=== PATIENT | male | born 1945 | race Caucasian/White ===

== ENCOUNTER → 2017-07-20 | Outpatient (CLI) | payer MEDICARE, OTHER ==
[~2017-07-20] MED LIST: ASCO1TAB17 PO; ASP325T PO; ATOR40TA70 PO; BIMA2.5D4 OP; BIMA2.5D4 OU; CHOL400T43 PO; CHOL5000 PO; CLPD75T PO; DIPH50CA33 PO; DIPH50CA44 PO; FNST5T PO; FURO20TA4 PO; FURO40TA4 PO; GEMF600T3 PO; IBP600T1 PO; IBUP200T48 PO; LORA10TA7 PO; LOVA40TA2 PO; LOVA60TA2 PO; LSRT50T PO; MELA1TAB16 PO; METH500T7 PO; MULT-418 PO; NEBI5TAB8 PO; NFNEB10T PO; NIAC1000 PO; NIAC1CAP PO; NITR0.4T3 SL; ORPH100T PO; PGLT30T PO; POTA10TA36 PO; POTA8TAB6 PO; POTA99TA18 PO; POTA99TA7 PO; RANI75TA30 PO; RNT150T PO; SELE200T11 PO; VITA800C PO; [UNRECOGNIZED DRUG - CODE] PO
--- NOTE | 2017-07-20 12:12 | Diagnostic Imaging Report ---
PROCEDURE: US abdomen complete. TECHNIQUE: Multiple real-time grayscale images were obtained over the abdomen in various projections. INDICATION: Abdominal pain. FINDINGS: The pancreas is largely obscured by bowel gas. The liver is fairly homogeneous with no focal lesion seen. Hepatopetal flow in the portal vein is seen. Multiple gallstones are noted in the gallbladder with no wall thickening or pericholecystic fluid. Sonographic Mckeon sign is negative. The CBD is obscured. The spleen is 11.1 cm in length. The right kidney is 12.4 and the left kidney is 10.8 cm in length. There is a 1.5 cm simple cyst in the mid left kidney exophytic. No solid mass is identified. No hydronephrosis. The abdominal aorta and IVC are largely obscured. No fluid collection or ascites is identified. IMPRESSION: Cholelithiasis. Dictated by: Dictated on workstation # [id number]
== END ==
LOC: RAD 08:54
PROVIDERS: ATTEND Internal Medicine
DX: K80.20 Calculus of gallbladder without cholecystitis without obstruction (principal)
CPT/HCPCS: 76700

== ENCOUNTER → 2017-08-03 | Outpatient (CLI) | payer MEDICARE, OTHER ==
[~2017-08-03] MED LIST changes: +ALLO300T2 PO; +ASPI-808 PO; +BISO10TA PO; +CHLO10TA10 PO; +DIAZ5TAB3 PO; +FINA5TAB6 PO; +HYDR-700 PO; +IBUP-2055 PO; +LATA2.5D19 OU; +METF500T8 PO; +NITR0.4T39 SL; +POTA8CAP9 PO; +TIZA2TAB3 PO
== END ==
LOC: CARD 09:23
PROVIDERS: ATTEND Nurse Practitioner Family
DX: I25.10 Atherosclerotic heart disease of native coronary artery without angina pectoris (principal); I10 Essential (primary) hypertension; E78.4 Other hyperlipidemia; R06.09 Other forms of dyspnea
CPT/HCPCS: 93306

== ENCOUNTER → 2017-08-04 | Outpatient (CLI) | payer MEDICARE, OTHER ==
[~2017-08-04] VITALS: Ht 177.8 cm; Wt 101.6 kg
[~2017-08-04] MED LIST changes: +REGADENOSON 0.4 MG/5 ML SYR (LEXISCAN) IV ONE
[2017-08-04] MEDS: CATHETER FLUSH 10 ML SYR IV PRN ×2 (07:41→09:27)
[2017-08-04 09:20] VITALS: BP 145/80
--- NOTE | 2017-08-04 14:33 | STRESS TEST ---
DATE OF SERVICE: 08/04/2017 RESTING AND POST REGADENOSINE TECHNETIUM-[address] IMAGING ORDERING: GORDO Milligan OTHER PHYSICIAN: Dr. Calixto. CLINICAL DIAGNOSES: Coronary artery disease. Baseline images were carried out after injection of 10.38 mCi of technitium-99 Tetrofosmin. This was followed by 0.4 mg regadenoson and 28.5 mCi of technetium-99 Tetrofosmin for stress imaging. The electrocardiogram showed sinus rhythm during the study and it did not change with the regadenoson infusion. The patient tolerated the procedure well and did not report any significant symptoms. Review of images at rest and following stress did not indicate any significant perfusion defects consistent with significant myocardial ischemia or infarction. Gated images show normal global left ventricular systolic function and normal regional wall motion. Left ventricular ejection fraction is calculated to be 59%. Left ventricular end diastolic volume is 63 mL. TID is absent (1.03). CONCLUSIONS: 1. No evidence of any significant myocardial ischemia or infarction on this study. 2. Normal regional wall motion. 3. Normal global left ventricular systolic function with a calculated ejection fraction of 59%. 4. Normal left ventricular cavity size. Job ID: [id number] DocumentID: [id number] Dictated Date: 08/04/2017 11:35:14 Naturalization Examiner Date: 08/04/2017 12:18:18 Dictated By: HAYDEN CALIXTO MD, MA, FACP, FACC, MTDD
== END ==
LOC: CARD 07:10
PROVIDERS: ATTEND Nurse Practitioner Family
DX: I25.10 Atherosclerotic heart disease of native coronary artery without angina pectoris (principal); R06.09 Other forms of dyspnea; E78.4 Other hyperlipidemia; I10 Essential (primary) hypertension
CPT/HCPCS: 78452; 93017

== ENCOUNTER 2017-08-05 12:14 | Outpatient (CLI) | payer MEDICARE, OTHER ==
[~2017-08-05] VITALS: Ht 177.8 cm; Wt 101.6 kg
[~2017-08-05 12:14] MED LIST changes: -ALLO300T2 PO; -ASPI-808 PO; -BISO10TA PO; -CHLO10TA10 PO; -DIAZ5TAB3 PO; -FINA5TAB6 PO; -HYDR-700 PO; -IBUP-2055 PO; -LATA2.5D19 OU; -METF500T8 PO; -NITR0.4T39 SL; -POTA8CAP9 PO; -REGADENOSON 0.4 MG/5 ML SYR (LEXISCAN) IV ONE; -TIZA2TAB3 PO
[2017-08-05] MEDS ORDERED: FINA5TAB6 PO (14:11)
[2017-08-05] MEDS ORDERED: TIZA2TAB3 PO (14:11)
[2017-08-05] MEDS ORDERED: POTA8CAP9 PO ×2 (14:11)
[2017-08-05] MEDS ORDERED: DIAZ5TAB3 PO (14:11)
[2017-08-05] MEDS ORDERED: ALLO300T2 PO (14:11)
[2017-08-05] MEDS ORDERED: LATA2.5D19 OU (14:11)
[2017-08-05] MEDS ORDERED: FURO40TA4 PO (14:11)
[2017-08-05] MEDS ORDERED: CHLO10TA10 PO (14:11)
[2017-08-05] MEDS ORDERED: LOVA40TA2 PO (14:11)
[2017-08-05] MEDS ORDERED: METF500T8 PO (14:11)
[2017-08-05] MEDS ORDERED: HYDR-700 PO (14:11)
[2017-08-05] MEDS ORDERED: BISO10TA PO (14:11)
[2017-08-05] MEDS ORDERED: ASPI-808 PO (14:14)
[2017-08-05] MEDS ORDERED: IBUP-2055 PO (14:14)
[2017-08-05] MEDS ORDERED: NITR0.4T39 SL (14:14)
[2017-08-08] MEDS ORDERED: ASCO1TAB12 PO (13:05)
[2017-08-08] MEDS ORDERED: UBID1CAP53 PO (13:05)
[2017-08-08] MEDS ORDERED: NIAC10002 PO (13:05)
[2017-08-08] MEDS ORDERED: MELA10CA2 PO (13:05)
[2017-08-08] MEDS ORDERED: LORA-714 PO (13:05)
[2017-08-08] MEDS ORDERED: RANI150T11 PO (13:05)
[2017-08-08] MEDS ORDERED: VITA400C60 PO (13:05)
[2017-08-08] MEDS ORDERED: SELE200T11 PO (13:10)
[2017-08-08] MEDS ORDERED: MULT-1042 PO (13:10)
[2017-08-08] MEDS ORDERED: HYDR-3820 PO (13:24)
== END 2017-08-05 14:16 ==
LOC: PREOP 12:14
PROVIDERS: ATTEND Surgery
DX: Z01.818 Encounter for other preprocedural examination (principal); K80.20 Calculus of gallbladder without cholecystitis without obstruction

== ENCOUNTER → 2017-08-08 | Day surgery (SDC) | payer MEDICARE, OTHER ==
[~2017-08-08] VITALS: Ht 177.8 cm; Wt 101.6 kg
[~2017-08-08] MED LIST changes: +ALLO300T2 PO; +ASCO1TAB12 PO; +ASPI-808 PO; +BISO10TA PO; +BUPIVACAINE 0.25% 30 ML (SENSORCAINE) VIAL ONE; +CATHETER FLUSH 10 ML SYR IV PRN; +CHLO10TA10 PO; +DIAZ5TAB3 PO; +FINA5TAB6 PO; +GLYCOPYRROLATE 0.2 MG/ML (ROBINUL) 2 ML VIAL ONE; +HYDR-3820 PO; +HYDR-700 PO; +IBUP-2055 PO; +LATA2.5D19 OU; +LIDOCAINE 1% INJ 20 ML (XYLOCAINE) VIAL ONE; +LIDOCAINE PF 2% 5 ML (XYLOCAINE) VIAL ONE; +LIDOCAINE/EPI 1%-1:200,000 (XYLOCAINE) 10 ML VIAL ONE; +LORA-714 PO; +MELA10CA2 PO; +METF500T8 PO; +MULT-1042 PO; +NEOSTIGMINE (BLOXIVERZ ) 1 MG/1ML 10 ML VIAL ONE; +NIAC10002 PO; +NITR0.4T39 SL; +ONDANSETRON 4 MG/2 ML (SDV) Z0FRAN IVP PRN; +ONDANSETRON 4 MG/2 ML (SDV) Z0FRAN ONE; +POTA8CAP9 PO; +RANI150T11 PO; +ROCURONIUM 50 MG/5 ML (ZEMURON) VIAL IV ONE; +SEVOFLURANE (ULTANE) 15 ML INHAL SOLN ONE; +TIZA2TAB3 PO; +UBID1CAP53 PO; +VITA400C60 PO; +fentaNYL INJECTION 100 MCG/2 ML AMP ONE; +morphine INJ 10 MG/ML 1ML (SYR OR VIAL) ONE; +proPOfol 200 MG/20 ML (DIPRIVAN) VIAL IV ONE
[2017-08-08 10:35] VITALS: BP 128/81
[2017-08-08] MEDS: LACTATED RINGERS 1,000 ML IV PRN ×2 (11:40→13:09)
--- NOTE | 2017-08-08 11:49 | Progress Note-Pre Operative ---
Pre-Operative Progress Note H&P Reviewed The H&P was reviewed, patient examined and no changes noted. Time Seen by Provider: 11:31 Date H&P Reviewed: Aug 08, 2017 Time H&P Reviewed: 11:35 Pre-Operative Diagnosis: Marie/Marie AMINAH HARRISON DO Aug 08, 2017 11:49
[2017-08-08] MEDS: ceFAZolin 2 GM/NS 50 ML IV ONE ×2 (12:21→13:14)
--- NOTE | 2017-08-08 13:23 | Progress Note-Post Operative ---
Post-Operative Progess Note Surgeon (s)/Racquet Maker (s) Surgeon AMINAH HARRISON DO Racquet Maker: Elle Pre-Operative Diagnosis Marie/Marie Post-Operative Diagnosis same Procedure & Operative Findings Date of Procedure 08/08/17 Procedure Performed/Findings Lap Marie with IOC Anesthesia Type GET Estimated Blood Loss Estimated blood loss (mL): scant Specimens/Packing Specimens Removed GB and contents AMINAH HARRISON DO Aug 08, 2017 13:22
--- NOTE | 2017-08-08 13:26 | Discharge Inst-Surgical ---
Discharge Inst-Surgical Depart Medication/Instructions New, Converted or Re-Newed RX: RX Given to Pt/Family Patient Instructions Follow up Appt: Make appointment for 1 week. Instructions: No lifting greater than 10 pounds. No strenuous activity. May shower in 24 hours, no tub bath or soaking. Use incentive spirometer at home as directed. No Smoking Skin/Wound Care: May remove bandages in am. You need to leave the Dermabond on over incision; it will fall off on its own. Symptoms to Report: Appetite Changes, Extremity Discoloration, Numbness/Tingling, Swelling Increased , Bleeding Excessive, Eyesight Changes, Pain Increased, Urine Color Change, Constipation(Persistent), Fever over 101 degree F, Pain/Pressure in chest, Urinating Difficulty, Cough Up/Vomit Blood, Heart Beat Irreg/Pounding, Pain/ Pressure in jaw, Vaginal Bleeding Increase, Cramps in feet or legs, Lightheadedness, Pain/Pressure in shoulder, Diarrhea(Persistent), Memory Changes Suddenly, Questions/Concerns, Weight gain consecutive days, Dizziness/ Fainting, Nausea/Vomiting, Shortness of Breath, Weight gain over 2 pounds. If eyes or skin turn yellow notify physician. If questions or concerns contact your physician Or seek help at emergency department. Activity Activity as Tolerated: Yes Activity Instructions: Avoid Pulling & Pushing, Avoid Stress to Incision Driving Instructions: No Driving/Refer to Diet Discharge Diet: Avoid Fatty Foods, Low Fat/Low Cholesterol Diet After 24 Hours: Clear Liquid if Nauseous If Any Problems/Questions/Issu: Contact Your Physician, Go to Emergency Room Skin/Wound Care Infection Signs and Symptoms: Increased Redness, Foul Odor of Wound, Increased Drainage, Skin Itchy or Has a Rash, Increased Swelling, Temperature Above 101 F Wound Care Comment: Use heating pad to shoulder and neck tonight for pain. Bathing Instructions: Shower Stitches/Jesus/Dermabond Dis: Dermabond Ice Pack: Ice On and Off Site AMINAH HARRISON DO Aug 08, 2017 13:26
[2017-08-08] MEDS: morphine INJ 10 MG/ML 1ML (SYR OR VIAL) IVP PRN ×2 (13:43→13:57)
--- NOTE | 2017-08-08 14:04 | Diagnostic Imaging Report ---
Intraoperative cholangiogram. INDICATION: Laparoscopic cholecystectomy for abdominal pain. 16 seconds of fluoroscopy time is provided. FINDINGS: The images provided demonstrate the proximal and mid CBD with normal-caliber and no filling defects seen. The distal aspect of the CBD and contrast in the duodenum is not evaluated on this exam. IMPRESSION: The proximal and mid segments of the CBD are normal in caliber with no filling defects seen. The distal aspect of the CBD is not evaluated on the submitted images. Dictated by: Dictated on workstation # [id number]
[2017-08-08 14:30] VITALS: BP_SYST 137; BP_SYST 142; BP_DIAS 72; BP_DIAS 80
[2017-08-08 15:00] VITALS: BP 140/80
[2017-08-08 15:50] VITALS: BP 137/72
--- NOTE | 2017-08-15 23:15 | OPERATIVE REPORT ---
DATE OF SERVICE: 08/08/2017 PREOPERATIVE DIAGNOSES: Cholelithiasis, cholecystitis. POSTOPERATIVE DIAGNOSES: Cholelithiasis, cholecystitis. PROCEDURE: Laparoscopic cholecystectomy, intraoperative cholangiogram. SURGEON: Dr. Carlisle. HEAD ESTHETICIAN: Dr. Elle DO. ANESTHESIA: General endotracheal tube. SPECIMENS: Gallbladder and contents. BLOOD LOSS: Scant. FLUIDS: Per anesthesia. POSTOPERATIVE CONDITION: Stable. INDICATION FOR PROCEDURE: The patient is a 72-year-old male who has been having pain in right upper quadrant usually associated with fried fatty foods and an ultrasound showed stones. I would like to want and get his gallbladder out. FINDINGS: The patient had some adhesions of the gallbladder, which usually indicate previous gallbladder attacks, gallbladder removed without difficulty. No stones in the duct. PROCEDURE NOTE: After informed consent was obtained, the patient was brought to the operating room, placed on the operating table in supine position. He was sterilely prepped and draped in normal fashion. Local lidocaine was used to infiltrate the skin above the umbilicus. Made an incision with #11 blade, carried down through the skin into subcutaneous tissue, then deepened down subcutaneous tissue with Bovie electrocautery down to the fascia. Fascia incised with Bovie electrocautery, then bluntly entered the abdomen, swept a finger around, placed 0 Vicryl [id number] suture and then placed an 11 mm trocar port under direct visualization. Created a pneumoperitoneum and placed 3 more ports in a normal fashion using local lidocaine and 11 blade for stab incision and the VersaStep system, all done under direct visualization, one subxiphoid and 2 in the right upper quadrant. The patient was then placed slightly reverse Trendelenburg and rotated left, able to grasp the gallbladder at the fundus and taken it in a superior direction and then started grasping down the Genaro's pouch, noted some adhesions. This is usually indicative of previous gallbladder attacks and carefully started taking down these adhesions and then started dissecting out the cystic duct and cystic artery. I was able to get around the cystic duct and cystic artery and placed 1 clip distally and 2 proximally in the cystic artery and then one clip distally on the cystic duct. Cut the cystic duct jail through with Metzenbaum scissors. Placed a cholangiogram catheter and shot a cholangiogram. Good spillage of dye down the common bile duct in the small intestine as well as up in the common hepatic and right and left hepatics. I then removed the cholangiogram catheter, placed 2 clips proximally on the cystic duct and cut the cystic duct and the cystic artery with Metzenbaum scissors and then removed the gallbladder from bed of liver with L-hook cautery. Once it was completely removed, placed a bag in the abdomen, placed the gallbladder in the bag and then removed this through the supraumbilical incision. Placed the port back in the abdomen, copiously irrigated with normal saline, suctioned this out, looked around, no other obvious pathology, but did not move any of the omentum or intestine out of the away. At this point, placed the patient supine and allowed pneumoperitoneum to escape and then closed the supraumbilical incision, closing the fascia with 0 Vicryl suture previously placed. Copiously irrigated all incisions with normal saline and then closed the three small 5 mm incisions with single interrupted 4-0 undyed Monocryl subcuticular stitch and closed the supraumbilical incision with 3 interrupted 4-0 undyed Monocryl subcuticular stitches. Area was cleaned and dried, Dermabond placed as well as the bandage. The patient then transferred to recovery room in stable condition. Sponge, instrument and needle counts correct at the end of the case. Dr. Almeida assisted in this case. He helped make incisions, place trocar ports, close incisions, hold anatomy and as well as identify anatomy in this case. Job ID: [id number] DocumentID: [id number] Dictated Date: 08/15/2017 13:49:23 Candy Polisher Date: 08/15/2017 23:15:40 Dictated By: AMINAH CARLISLE DO
== END | disposition home or self-care (01) ==
LOC: SDC 10:29
PROVIDERS: ATTEND Surgery
DX: K80.10 Calculus of gallbladder with chronic cholecystitis without obstruction (principal); I48.91 Unspecified atrial fibrillation; I25.10 Atherosclerotic heart disease of native coronary artery without angina pectoris; E11.9 Type 2 diabetes mellitus without complications; E78.5 Hyperlipidemia, unspecified; I10 Essential (primary) hypertension; Z95.1 Presence of aortocoronary bypass graft; Z87.891 Personal history of nicotine dependence; Z95.5 Presence of coronary angioplasty implant and graft; K21.9 Gastro-esophageal reflux disease without esophagitis
CPT/HCPCS: 82962; 87081; 88304

== ENCOUNTER → 2018-10-25 | Outpatient (CLI) | payer MEDICARE, OTHER ==
[~2018-10-25] MED LIST changes: -BUPIVACAINE 0.25% 30 ML (SENSORCAINE) VIAL ONE; -CATHETER FLUSH 10 ML SYR IV PRN; -GLYCOPYRROLATE 0.2 MG/ML (ROBINUL) 2 ML VIAL ONE; -LIDOCAINE 1% INJ 20 ML (XYLOCAINE) VIAL ONE; -LIDOCAINE PF 2% 5 ML (XYLOCAINE) VIAL ONE; -LIDOCAINE/EPI 1%-1:200,000 (XYLOCAINE) 10 ML VIAL ONE; -NEOSTIGMINE (BLOXIVERZ ) 1 MG/1ML 10 ML VIAL ONE; -NITR0.4T3 SL; +NITR0.4T42 SL; -ONDANSETRON 4 MG/2 ML (SDV) Z0FRAN IVP PRN; -ONDANSETRON 4 MG/2 ML (SDV) Z0FRAN ONE; -ROCURONIUM 50 MG/5 ML (ZEMURON) VIAL IV ONE; -SEVOFLURANE (ULTANE) 15 ML INHAL SOLN ONE; -fentaNYL INJECTION 100 MCG/2 ML AMP ONE; -morphine INJ 10 MG/ML 1ML (SYR OR VIAL) ONE; -proPOfol 200 MG/20 ML (DIPRIVAN) VIAL IV ONE
== END ==
LOC: CARD 13:53
PROVIDERS: ATTEND Nurse Practitioner Family
DX: I48.0 Paroxysmal atrial fibrillation (principal); I25.10 Atherosclerotic heart disease of native coronary artery without angina pectoris; I10 Essential (primary) hypertension; E78.5 Hyperlipidemia, unspecified; I08.2 Rheumatic disorders of both aortic and tricuspid valves
CPT/HCPCS: 93306

== ENCOUNTER → 2018-11-07 | Outpatient (CLI) | payer MEDICARE ==
[~2018-11-07] MED LIST changes: +REGADENOSON 0.4 MG/5 ML SYR (LEXISCAN) IV ONE
[2018-11-07] MEDS: CATHETER FLUSH 10 ML SYR IV PRN ×2 (12:03→12:17)
[2018-11-07 13:17] VITALS: BP 146/75
[2018-11-07 13:19] VITALS: BP 141/69
== END ==
LOC: CARD 11:54
PROVIDERS: ATTEND Nurse Practitioner Family
DX: R55 Syncope and collapse (principal); R07.89 Other chest pain; I25.10 Atherosclerotic heart disease of native coronary artery without angina pectoris; I48.0 Paroxysmal atrial fibrillation; I10 Essential (primary) hypertension; E78.5 Hyperlipidemia, unspecified; I73.9 Peripheral vascular disease, unspecified
CPT/HCPCS: 78452; 93017; 93225; 93226

== ENCOUNTER 2018-11-21 10:14 | Day surgery (SDC) | payer MEDICARE ==
[2018-11-21] VITALS (10 sets, daily range): BP systolic 112–152; BP diastolic 63–80
[~2018-11-21] VITALS: Ht 177.8 cm; Wt 90.7 kg
[~2018-11-21 10:14] MED LIST changes: -REGADENOSON 0.4 MG/5 ML SYR (LEXISCAN) IV ONE
[2018-11-21] MEDS ORDERED: LIDOCAINE 1% INJ 20 ML 20 ML VIAL ONE (10:17)
[2018-11-21] MEDS ORDERED: HEParin (CATH LAB) 2,000 ML IV ONE (10:17)
[2018-11-21] MEDS ORDERED: NS IV 1000 ML 1,000 ML IV SCH ×2 (10:18→12:43)
[2018-11-21 10:57] LABS: MEAN PLATELET VOLUME 11.4 FL (7.4-10.4); RED CELL DISTRIBUTION WIDTH 14.5 % (10.0-14.5); WHITE BLOOD COUNT 8.3 10^3/uL (4.3-11.0)
[2018-11-21] MEDS ORDERED: ASPI-586 PO (11:06)
[2018-11-21] MEDS ORDERED: APIX5TAB PO (11:07)
[2018-11-21] MEDS ORDERED: BISO10TA PO (11:08)
[2018-11-21] MEDS ORDERED: LOVA40TA2 PO (11:10)
[2018-11-21] MEDS ORDERED: METF500T8 PO (11:11)
[2018-11-21] MEDS ORDERED: TIZA2CAP9 PO (11:11)
[2018-11-21 11:12] LABS: PROTHROMBIN TIME PATIENT 12.8 SEC (12.2-14.7)
[2018-11-21] MEDS ORDERED: LORA10TA7 PO (11:13)
[2018-11-21] MEDS ORDERED: NIAC500T24 PO (11:15)
[2018-11-21] MEDS ORDERED: NIAC10002 PO (11:16)
[2018-11-21 11:18] LABS: ALBUMIN 4.4 GM/DL (3.2-4.5); BILIRUBIN,TOTAL 0.9 MG/DL (0.1-1.0); CALCIUM 9.7 MG/DL (8.5-10.1); CREATININE SERUM 1.23 MG/DL (0.60-1.30); POTASSIUM 3.9 MMOL/L (3.6-5.0); TOTAL PROTEIN 7.3 GM/DL (6.4-8.2)
--- NOTE | 2018-11-21 11:18 | NUR ---
Patient brought all prescription bottle in. Bisoprolol bottle stated 10mg daily he states he only takes 5mg.
[2018-11-21] MEDS ORDERED: MIDAZOLAM 5 MG/5 ML (VERSED) VIAL ONE (11:26)
[2018-11-21] MEDS ORDERED: fentaNYL INJECTION 100 MCG/2 ML AMP ONE (11:27)
--- NOTE | 2018-11-21 12:43 | Cardiac Procedure Note-CS/ASA ---
Pre-Procedure Note Pre-Op Procedure Note H&P Reviewed The H&P was reviewed, patient examined and no changes noted. Date H&P Reviewed: Nov 21, 2018 Time H&P Reviewed: 11:55 Conscious Sedation Pre-Proced Time 11:55 ASA Score 3 For ASA 3 and 4: Consider anesthesia and medical clearance. Also, for patients with a history of failed moderate sedation consider anesthesia. Airway Lungs Heart ASA score ASA 1: a normal healthy patient ASA 2: a patient with a mild systemic disease (mid diabetes, controlled hypertension, obesity ASA 3: a patient with a severe systemic disease that limits activity (angina , COPD, prior Myocardial infarction) ASA 4: a patient with an incapacitating disease that is a constant threat to life (CHF, renal failure) ASA 5: a moribund patient not expected to survive 24 hrs. (ruptured aneurysm) ASA 6: a declared brain- patient whose organs are being harvested. For emergent operations, add the letter E after the classification Mallampati Classification Grade 2 Sedation Plan Analgesia, Amnesia, Plan communicated to team members, Discussed options with patient/fam, Discussed risks with patient/fam The patient is an appropriate candidate to undergo the planned procedure, sedation, and anesthesia. The patient immediately re-assessed prior to indication. HAYDEN LMION MD FACP FAC CCDS Nov 21, 2018 12:43
[2018-11-21] MEDS ORDERED: PATIENT MAY USE OWN MEDS, ALL PO SCH (12:45)
--- NOTE | 2018-11-21 12:46 | Discharge Inst-Post CATH ---
Discharge Inst-CATH/EP Post Cardiac Cath/EP D/C Inst Follow Up/Plan F/u with Dr Calixto in 2 weeks CARDIAC CATH DISCHARGE INSTRUCTIONS *Hold Metformin for 48 hours post heart cath. ACTIVITY * Go Home directly and rest. * Limit activity of the leg (or wrist if it was used) for 7 days including aerobics, swimming, jogging, bicycling, etc. * Restrict stair-climbing for 7 days if possible, if not, climb up with your non -cath leg, then bring together on the same step. * Avoid lifting, pushing, pulling or excessive movement of the affected extremity for 7 days. * Customary sexual activity may be resumed after 2 days-use caution not to use a position that strains or causes pain to the affected extremity. * No driving for 24 hours. * NO SMOKING. * Avoid straining for bowel movements for 7 days. * Gentle walking on level ground is allowed. * Returning to work will depend on the type of procedure and the results. Your doctor will discuss this with you. CALL YOUR DOCTOR FOR ANY OF THE FOLLOWING: *If bleeding from the puncture site occurs- Apply gentle pressure to site with clean cloth and call your doctor or EMS. * If a knot or lump forms under the skin, increases in size, or causes pain. * If bruising appears to be worsening or moving further down your leg instead of disappearing. * Temperature above 101 F. CARE OF YOUR GROIN INCISION; * Bruising or purple discoloration of the skin near the puncture site is common. * You may shower only, no bathtub bathing for 5 days. Be careful to avoid slipping as your leg may feel stiff. * If a closure device was used on your femoral artery, please see the attached guide regarding care of the device and your leg. * Leave the dressing on, until removed by office staff. CARE OF YOUR WRIST INCISION; * Bruising or purple discoloration of the skin near the puncture site is common. * You may shower. * DO NOT submerge wrist. * Leave dressing on, until removed by office staff.. HAYDEN CALIXTO MD [facility] CCDS Nov 21, 2018 12:46
--- NOTE | 2018-11-21 12:48 | Discharge Inst-Cardiology ---
Discharge Inst-Cardiac Discharge Medications Continued Medications: Allopurinol (Allopurinol) 300 Mg Tablet 300 MG PO HS, TAB Apixaban (Eliquis) 5 Mg Tablet 5 MG PO BID, TAB Ascorbate Calcium/Bioflavonoid (Samantha-C 500 mg Tablet) 1 Each Tablet 500 MG PO DAILY, #1 TAB Aspirin (Aspir 81) 81 Mg Tablet.dr 81 MG PO HS, TAB Bisoprolol Fumarate (Bisoprolol Fumarate) 10 Mg Tablet 5 MG PO HS, TAB Finasteride (Finasteride) 5 Mg Tablet 5 MG PO DAILY, TAB Furosemide (Furosemide) 40 Mg Tablet 40 MG PO 0800,1200, TAB Latanoprost (Xalatan) 2.5 Ml Drops 1 DROP OU HS, DROPS Loratadine (Loratadine) 10 Mg Tablet 10 MG PO DAILY, TAB Lovastatin (Lovastatin) 40 Mg Tablet 40 MG PO DAILY, TAB Melatonin (Melatonin) 10 Mg Capsule 10 MG PO HS, #1 CAP Multivit-Min/Iron Fum/Folic AC (Smtxz-Mxxkyzr-Rinzeyoj Tablet) 1 Each Tablet 1 EACH PO DAILY, #1 TAB Niacin (Niacin) 1,000 Mg Tablet.er 2000 MG PO HS, TAB Nitroglycerin (Nitroglycerin) 0.4 Mg Tab.subl 0.4 MG SL UD PRN for CHEST PAIN, TAB Potassium Chloride (Potassium Chloride) 8 Meq Capsule.er 16 MEQ PO DAILY, CAP take 2 (8MEQ) tabs Ranitidine HCl (Ranitidine HCl) 150 Mg Tablet 150 MG PO BID, #1 TAB Selenomethionine (Selenium) 200 Mcg Tablet 200 MCG PO DAILY, #1 TAB Tizanidine HCl (Tizanidine HCl) 2 Mg Capsule 2-4 MG PO HS PRN for MUSCLE SPASMS, CAP Ubidecarenone/Vit E Acetate (Co Q-10 100 mg Softgel) 1 Each Capsule 1 EACH PO DAILY, #1 CAP Vitamin E Acetate (Vitamin E) 400 Unit Capsule 800 INTLU PO DAILY, #1 CAP Discontinued Medications: Ibuprofen (Ibuprofen) 200 Mg Tablet 400 MG PO BID, TAB take 2 (200mg) tabs Metformin HCl (Metformin HCl ER) 500 Mg Tab.er.24h 1500 MG PO HS, TAB Patient Instructions Patient Instructions: Hold Metformin until the evening of 11/23/18 and then resume previous home dose HAYDEN LIMON MD FACP FAC CCDS Nov 21, 2018 12:48
--- NOTE | 2018-11-21 13:15 | CARDIAC CATHETERIZATION ---
DATE OF SERVICE: 11/21/2018 The patient is a 73-year-old man with a history of coronary artery disease and coronary artery bypass surgery. He is also known to have moderate aortic stenosis, moderate aortic regurgitation. A recent myocardial perfusion imaging study was indicative of some degree of inferolateral ischemia. Cardiac catheterization was carried out today after having obtained informed consent. PROCEDURE: He was brought to the cardiac catheterization laboratory in a fasting state. Right groin was prepared and draped in the usual sterile fashion. Lidocaine 1% for local anesthesia. Modified Seldinger technique was used to advance a 5-Micronesian sheath in the right femoral artery. A 5-Micronesian JL4 catheter was used for left coronary angiography. A 5-Micronesian JR4 catheter was used for right coronary angiography. A 5-Micronesian and JR4 catheter were used for angiography of the aortocoronary graft. A 5-Micronesian TYE catheter was used for angiography of the left internal mammary artery graft to the left anterior descending artery. A 5-Micronesian pigtail catheter was used for left heart catheterization and left ventricular angiography. At the end of the procedure, angiography of the right femoral artery was carried out through the sheath and Mynx was used to achieve hemostasis. He tolerated the procedure well. HEMODYNAMICS: Left ventricular end-diastolic pressure following coronary angiography was 16 mmHg. There was approximately 45 mm pressure gradient on pullback across the aortic valve. Ascending aortic pressure was 99/48 with a mean of 69 mmHg. CORONARY ANGIOGRAPHY: Diffuse moderate coronary calcification is seen. Left main coronary artery has 80% ostial stenosis. Left anterior descending artery has 60 to 70% mid vessel stenosis. Left circumflex artery has up to 80% stenoses in small sub branches of an obtuse marginal system. Right coronary artery has 70% ostial stenosis and 70% distal stenosis. There is a patent stent in the mid right coronary artery. AORTOCORONARY GRAFT ANGIOGRAPHY: The aortocoronary graft is a sequential graft to a posterolateral artery and to the distal right coronary artery. It is patent and does not exhibit significant obstructive disease. LEFT INTERNAL MAMMARY ARTERY GRAFT ANGIOGRAPHY: Left internal mammary artery graft is grafted to the mid left anterior descending artery. It is patent and free of significant disease. LEFT VENTRICULAR ANGIOGRAPHY: Left ventricular angiography was carried out in the right anterior oblique projection. Global left ventricular systolic function is normal. Left ventricular ejection fraction is approximately 65%. CONCLUSIONS: 1. Severe muscogee coronary artery disease including 80% ostial stenosis of left anterior descending, 60 to 70% mid vessel stenosis of left anterior descending, 80 to 90% stenosis in small caliber sub-branches of left circumflex obtuse marginal, 70% proximal and distal stenosis in the right coronary. 2. Patent left internal mammary artery graft to left anterior descending artery. 3. Patent sequential aortocoronary graft to a posterolateral and to the distal right coronary. 4. Normal global left ventricular systolic function with ejection fraction of 60-65%. 5. Mild to moderate elevation of left ventricular end-diastolic pressure. 6. A 45 mm pressure gradient on pullback across the aortic valve, indicative of moderate aortic stenosis. DISCUSSION AND RECOMMENDATIONS: Based on the results of the study, it appears reasonable to continue with a conservative approach and continuing focus on risk factor modification. Outpatient followup is advised. Job ID: [id number] DocumentID: [id number] Dictated Date: 11/21/2018 12:39:05 Printing Grey Cloth Tender Date: 11/21/2018 13:14:54 Dictated By: HAYDEN LIMON MD, MA, FACP, FACC, MTDD
--- NOTE | 2018-11-21 13:55 | NUR ---
PT.'S OXYGEN CONTINUES TO DROP BELOW 80% EVERY TIME HE DRIFTS OFF TO SLEEP. THIS NURSE PUT PT. ON 2 LITERS OF O2 AND BUMPED IT UP TO 5 LITERS NEEDED. THIS NURSE TOLD FAMILY THEY MIGHT ASK PCP ABOUT CONSIDERING A SLEEP STUDY FOR PT OR CONSIDER OXYGEN FOR SLEEPING.
== END 2018-11-21 16:15 | disposition home or self-care (01) ==
LOC: CATH 10:14
PROVIDERS: ATTEND Internal Medicine Cardiovascular Disease
DX: I25.10 Atherosclerotic heart disease of native coronary artery without angina pectoris (principal); I35.2 Nonrheumatic aortic (valve) stenosis with insufficiency; I48.91 Unspecified atrial fibrillation; I10 Essential (primary) hypertension; E11.9 Type 2 diabetes mellitus without complications; E78.5 Hyperlipidemia, unspecified; I73.9 Peripheral vascular disease, unspecified; Z79.01 Long term (current) use of anticoagulants; Z79.82 Long term (current) use of aspirin; Z79.84 Long term (current) use of oral hypoglycemic drugs; Z79.899 Other long term (current) drug therapy; Z87.891 Personal history of nicotine dependence; Z95.1 Presence of aortocoronary bypass graft
CPT/HCPCS: 36415; 80053; 80061; 85027; 85610; 85730; 87081; 93459

== ENCOUNTER 2020-01-09 05:36 | Outpatient (CLI) | payer MEDICARE ==
[~2020-01-09] VITALS: Ht 177.8 cm; Wt 95.9 kg
[~2020-01-09 05:36] MED LIST changes: +ACHYD1T PO; +APIX5TAB PO; +ASPI-586 PO; -DIAZ5TAB3 PO; +DIAZ5TAB49 PO; -HYDR-3820 PO; -IBUP-2055 PO; +IBUP-2473 PO; +METF500T19 PO; -METF500T8 PO; +NIAC500T24 PO; +POTA8CAP20 PO; -POTA8CAP9 PO; +TIZA2CAP9 PO; -TIZA2TAB3 PO; +TIZA2TAB4 PO
[2020-01-09] MEDS ORDERED: MELA1TAB20 PO (10:38)
[2020-01-09] MEDS ORDERED: ASCO-262 PO (10:38)
[2020-01-09] MEDS ORDERED: UBID100C17 PO (10:38)
[2020-01-09] MEDS ORDERED: FAMO40TA72 PO (10:38)
[2020-01-09] MEDS ORDERED: MULT-1104 PO (10:38)
[2020-01-09] MEDS ORDERED: METF-397 PO (10:38)
== END 2020-01-09 10:41 | disposition home or self-care (01) ==
LOC: PREOP 05:36
PROVIDERS: ATTEND Internal Medicine
DX: Z01.818 Encounter for other preprocedural examination (principal)

== ENCOUNTER 2020-01-11 07:32 | Day surgery (SDC) | payer MEDICARE ==
--- NOTE | 2020-01-10 05:50 | HISTORY AND PHYSICAL ---
DATE OF SERVICE: COLONOSCOPY HISTORY AND PHYSICAL HISTORY OF PRESENT ILLNESS: The patient is a 74-year-old white male seen in the office on 01/07/2020, reporting over the past month he has noted pinkish blood with the passage of stool. It does not appear to be mixed in with the stool. He denies any associated rectal pain and denies any known hemorrhoids. He has not experienced any bowel habit change. Hemoglobin was down one point to 13.2 with an MCV of 96 and his white count was 9000 with a platelet count of 186,000. The remainder of his blood work and for followup of diabetes was also good with a fasting sugar of 108 and an A1c of 5.9, estimated GFR was 65% and electrolytes were normal. He denies abdominal pain. He is not aware of a family history of colon cancer and his last colonoscopy he believes was about 9 years ago. He was not aware of any abnormalities. I will need to check this on electronic medical record as it was done at [facility]. PAST MEDICAL HISTORY: Significant for known coronary artery disease. He is 6 or 7 years out from 3-vessel bypass, has a history of peripheral vascular disease and has been on Eliquis for paroxysmal atrial fibrillation. REVIEW OF SYSTEMS: CONSTITUTIONAL: He has had no night sweats, chills or fever. His weight was stable at 211 pounds. He does, however, note some mild increase in fatigue. CARDIOVASCULAR: He has had no angina. Denies orthopnea, PND, pedal edema or increased shortness of breath. PULMONARY: He denies cough, sputum production, chest pain or wheezing. PHYSICAL EXAMINATION: GENERAL: Reveals a pale-appearing white male, otherwise, in no acute distress. He was alert and oriented with normal affect. VITAL SIGNS: Blood pressure 120/58, heart rate 80. HEENT: Other than some pallor was unremarkable. Sclerae nonicteric. CHEST: Clear to auscultation. CARDIOVASCULAR: Reveals a regular rate and rhythm with a 2-3/6 systolic ejection murmur and 1-2/6 diastolic decrescendo murmur heard best over the aortic outflow tract. No S3 or S4 were noted. Heart rate is regular. No evidence for pulsus parvus et tardus was noted. ABDOMEN: Soft, supple without mass, organomegaly or tenderness. No bruits are noted. No evidence for abdominal aortic aneurysm to palpation is noted. EXTREMITIES: Reveal no cyanosis, clubbing or edema. For further evaluation of low level of fatigue, anemia and rectal bleeding, the patient is being set up for diagnostic colonoscopy on 01/11/2020. Prep instructions were given and questions were answered. Job ID: [id number] DocumentID: [id number] Dictated Date: 01/07/2020 15:32:21 Cook Fishing Vessel Date: 01/07/2020 16:02:07 Dictated By: TAYA SONG MD
[2020-01-11] VITALS (13 sets, daily range): BP systolic 119–165; BP diastolic 62–78
[~2020-01-11] VITALS: Ht 177.8 cm; Wt 95.9 kg
[~2020-01-11 07:32] MED LIST changes: +ASCO-262 PO; +FAMO40TA72 PO; +MELA1TAB20 PO; +METF-397 PO; +MULT-1104 PO; +UBID100C17 PO
[2020-01-11] MEDS ORDERED: LACTATED RINGERS 1,000 ML IV ONE (07:34)
[2020-01-11] MEDS ORDERED: D5 LR IV SOLUTION 1,000 ML IV STA (07:40)
[2020-01-11] MEDS ORDERED: MIDAZOLAM 5 MG/5 ML (VERSED) VIAL IV PRN (07:45)
[2020-01-11] MEDS ORDERED: fentaNYL INJECTION 100 MCG/2 ML AMP IVP ONE (07:45)
[2020-01-11] MEDS ORDERED: LIDOCAINE JELLY 2% 6 ML SYRINGE MM PRN (07:45)
[2020-01-11] MEDS ORDERED: fentaNYL INJECTION 100 MCG/2 ML AMP ONE (08:03)
[2020-01-11] MEDS ORDERED: MIDAZOLAM 5 MG/5 ML (VERSED) VIAL ONE (08:03)
[2020-01-11] MEDS ORDERED: LIDOCAINE JELLY 2% 6 ML SYRINGE ONE (08:03)
--- NOTE | 2020-01-11 08:05 | Pre-Op Note & Conscious Sedat ---
Pre-Operative Progress Note H&P Reviewed The H&P was reviewed, patient examined and no changes noted. Date H&P Reviewed: Jan 11, 2020 Time H&P Reviewed: 07:40 Conscious Sedation Pre-Proced ASA Score 2 For ASA 3 and 4: Consider anesthesia and medical clearance. Also, for patients with a history of failed moderate sedation consider anesthesia. Airway Lungs Heart ASA score ASA 1: a normal healthy patient ASA 2: a patient with a mild systemic disease (mid diabetes, controlled hypertension, obesity ASA 3: a patient with a severe systemic disease that limits activity (angina, COPD, prior Myocardial infarction) ASA 4: a patient with an incapacitating disease that is a constant threat to life (CHF, renal failure) ASA 5: a moribund patient not expected to survive 24 hrs. (ruptured aneurysm) ASA 6: a declared brain- patient whose organs are being harvested. For emergent operations, add the letter E after the classification Mallampati Classification Grade 2 Sedation Plan Analgesia, Amnesia, Plan communicated to team members, Discussed options with patient/fam, Discussed risks with patient/fam The patient is an appropriate candidate to undergo the planned procedure, sedation, and anesthesia. The patient immediately re-assessed prior to indication. TAYA SONG MD Jan 11, 2020 08:05
[2020-01-11] MEDS ORDERED: SIMETHICONE 40 MG/0.6 ML (MYLICON DROPS) 30 ML BTL ONE (08:23)
--- NOTE | 2020-01-11 09:46 | OPERATIVE REPORT ---
DATE OF SERVICE: COLONOSCOPY SUMMARY INDICATION FOR THE PROCEDURE: Rectal bleeding with anemia. DESCRIPTION OF PROCEDURE: The patient was placed in the left lateral decubitus position. Prior to undergoing colonoscopy, digital rectal evaluation was performed. The prostate was mildly enlarged, anodular and nontender to digital inspection. No other abnormalities noted on additional inspection of anal canal or distal rectal vault. The colonoscope was then inserted into the rectum and under direct visualization advanced to cecum. The cecum was identified by identification of ileocecal valve and cecal strap. Photographic documentation was obtained. Careful inspection was made as colonoscope withdrawn. FINDINGS: There was no evidence for internal or external hemorrhoids and the rectum was unremarkable. There were a moderate number of small to medium size sigmoid diverticulum present without evidence for diverticulitis. Haustral hypertrophy is noted. Several diverticulum were noted in the descending colon as well without evidence for diverticulitis. No evidence for neoplasia was identified. The splenic flexure, a safer one diverticulum in the transverse colon. The transverse colon was unremarkable as well as the hepatic flexure, ascending colon and cecum. ASSESSMENT: No evidence for neoplasia was identified today. There was no evidence for internal or external hemorrhoids with moderate diverticular disease predominantly confined to the sigmoid colon lesser extent descending colon and one small diverticulum noted in the transverse colon. No other abnormalities noted on today's procedure. The patient will be advised to hold his Eliquis, but continue aspirin as he is high risk for severe complications from COVID-19 and the patient is taking Eliquis for paroxysmal atrial fibrillation. We will have the patient resume likely within 1 month to do everything to reduce risk for medical care during this time of pandemic. Short term risk of dual anticoagulant medication considering recent lower GI Bleed outweigh benefits. Job ID: [id number] DocumentID: [id number] Dictated Date: 01/11/2020 09:03:57 [employer] Analysis Engineering Technician Date: 01/11/2020 09:45:30 Dictated By: TAYA SONG MD [facility]
== END 2020-01-11 09:45 | disposition home or self-care (01) ==
LOC: ENDO 07:32
PROVIDERS: ATTEND Internal Medicine
DX: K57.30 Diverticulosis of large intestine without perforation or abscess without bleeding (principal); I48.0 Paroxysmal atrial fibrillation; D64.9 Anemia, unspecified; I25.10 Atherosclerotic heart disease of native coronary artery without angina pectoris; I73.9 Peripheral vascular disease, unspecified; Z95.1 Presence of aortocoronary bypass graft

== ENCOUNTER → 2020-09-29 | Outpatient (CLI) | payer MEDICARE ==
[~2020-09-29] MED LIST changes: +LORA-53 PO; -LORA-714 PO; +METF-865 PO; -METF500T19 PO; -TIZA2TAB4 PO; +TIZA2TAB7 PO
--- NOTE | 2020-09-29 11:41 | Diagnostic Imaging Report ---
PROCEDURE: CT abdomen and pelvis without contrast. TECHNIQUE: Multiple contiguous axial images were obtained through the abdomen and pelvis without the use of intravenous contrast. Auto Exposure Controls were utilized during the CT exam to meet ALARA standards for radiation dose reduction. INDICATION: Prostate cancer. FINDINGS: The previous CT abdomen/pelvis exam of 12/13/2013 failed to show any sign of an acute abnormality. The liver is homogeneous and does not seem to be enlarged. The spleen, the pancreas, the adrenals, the kidneys, the aorta and inferior vena cava show no sign of an acute abnormality. The small 1.5 cm hyperdense cyst along the lateral aspect of the left kidney seen previously is again evident and does not appear changed. Consequently, I do suspect this is a benign process. 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 I do suspect that there is a hemodynamically significant stenosis in this region. This finding is similar although somewhat worse than noted on the prior exam. The stomach is filled with particulate matter and fluid and consequently difficult to assess. There are numerous diverticula throughout the sigmoid and descending colon. There is no evidence for acute diverticulitis. The appendix is not well-visualized but there are no indirect signs of acute appendicitis. The urinary bladder and prostate gland are grossly unremarkable. The bone windows show no evidence for a lytic or blastic lesion to suggest metastatic disease. If a more sensitive evaluation of skeletal metastatic disease is desired, then nuclear medicine bone scan would be recommended. There is mild dependent atelectasis in the left lung base. The lungs are otherwise generally clear. Extensive coronary artery calcifications are again noted. IMPRESSION: 1. There is no evidence for an acute abnormality of the abdomen or pelvis. 2. There is diverticulosis of the sigmoid and descending colon but there is no sign of acute diverticulitis. 3. There is no bony lesion to suggest metastatic disease. Additional considerations as above. Dictated by: Dictated on workstation # [id number]
--- NOTE | 2020-09-29 21:28 | Diagnostic Imaging Report ---
EXAM: Nuclear medicine whole body bone scan INDICATION: Prostate cancer This study was performed following the administration of 26.1 mCi of 99 technetium MDP. Anterior and posterior whole-body images were obtained. Spot anterior and posterior images of the lumbar spine and pelvis were also performed. COMPARISON: There are no prior nuclear medicine studies available for comparison. FINDINGS: There is increased activity in the L4 vertebral body on the right and in the L5 vertebral body on the left. The CT abdomen/pelvis exam performed earlier today in conjunction with this study did note fairly severe degenerative disc and bony disease involving the lower lumbar spine. There is no sign of a fracture in this area or of a destructive lesion and consequently the abnormal uptake seen on this exam may well be due to degenerative disease alone. If further imaging is desired, then MRI would be recommended. There is also increased activity in the region of the costovertebral junction of the left 1st rib. This is probably degenerative in nature as well. There is generalized increased activity about both knee joints as well and this too is most likely secondary to degenerative disease. There is no abnormal uptake to suggest neoplastic disease or an acute abnormality. Both kidneys do show excretion of the radiotracer. IMPRESSION: 1. The areas of abnormal uptake involving the lower lumbar spine are more likely due to degenerative disease than to neoplasm. Recommendations as above. 2. There is no other evidence for neoplastic disease or for an acute abnormality. Dictated by: Dictated on workstation # [id number]
== END ==
LOC: CARD 10:45
PROVIDERS: ATTEND Urology
DX: C61 Malignant neoplasm of prostate (principal); K57.30 Diverticulosis of large intestine without perforation or abscess without bleeding; M51.36 Other intervertebral disc degeneration, lumbar region
CPT/HCPCS: 74176; 78306; A9503

== ENCOUNTER 2020-11-07 05:28 | Outpatient (RCR) | payer MEDICARE ==
[~2020-11-07] VITALS: Ht 180 cm; Wt 95.9 kg
[~2020-11-07 05:28] MED LIST changes: +TIZA-169 PO; -TIZA2TAB7 PO
== END 2020-11-07 10:12 | disposition home or self-care (01) ==
LOC: PREOP 05:28
PROVIDERS: ATTEND Urology
DX: Z01.812 Encounter for preprocedural laboratory examination (principal); C61 Malignant neoplasm of prostate; Z20.822 Contact with and (suspected) exposure to COVID-19
CPT/HCPCS: 87635

== ENCOUNTER 2020-11-11 07:57 | Day surgery (SDC) | payer MEDICARE ==
[~2020-11-11] VITALS: Ht 180 cm; Wt 95.9 kg
[2020-11-11] VITALS (10 sets, daily range): BP systolic 106–141; BP diastolic 57–83
--- NOTE | 2020-11-11 07:10 | Progress Note-Pre Operative ---
Pre-Operative Progress Note H&P Reviewed The H&P was reviewed, patient examined and no changes noted. Date Seen by Provider: Nov 11, 2020 Time Seen by Provider: 08:49 Date H&P Reviewed: Nov 11, 2020 Time H&P Reviewed: 08:49 Pre-Operative Diagnosis: CA PROSTATE MACKENZIE LAGUNAS MD Nov 11, 2020 07:10
[2020-11-11] MEDS ORDERED: LACTATED RINGERS 1,000 ML IV PRN (08:00)
[2020-11-11] MEDS ORDERED: cefTRIAXone FOR IV USE 1,000 MG in WATER (STERILE) FOR INJECTION 10 ML IV ONE (08:00)
[2020-11-11] MEDS ORDERED: SEVOFLURANE (ULTANE) 15 ML INHAL SOLN ONE (08:26)
[2020-11-11] MEDS ORDERED: proPOfol 200 MG/20 ML (DIPRIVAN) VIAL IV ONE (08:26)
[2020-11-11] MEDS ORDERED: fentaNYL INJECTION 100 MCG/2 ML AMP ONE (08:26)
[2020-11-11] MEDS ORDERED: ONDANSETRON 4 MG/2 ML (SDV) Z0FRAN ONE (08:26)
[2020-11-11] MEDS ORDERED: MIDAZOLAM 2 MG/2 ML (VERSED) VIAL ONE (08:26)
[2020-11-11] MEDS ORDERED: LIDOCAINE PF 2% 5 ML (XYLOCAINE) VIAL ONE (08:26)
--- NOTE | 2020-11-11 08:53 | Progress Note-Post Operative ---
Post-Operative Progess Note Surgeon (s)/Home Teaching Grades 9 Thru 12 Teacher (s) Surgeon MACKENZIE LAGUNAS MD Home Teaching Grades 9 Thru 12 Teacher: NONE Pre-Operative Diagnosis CA PROSTATE Post-Operative Diagnosis SAME Procedure & Operative Findings Date of Procedure 11/11/20 Procedure Performed/Findings PLACEMENT OF SPACE OAR Anesthesia Type GENERAL Estimated Blood Loss Estimated blood loss (mL): NONE Specimens/Packing Specimens Removed NONE Packing: NONE MACKENZIE LAGUNAS MD Nov 11, 2020 08:53
--- NOTE | 2020-11-11 08:54 | Discharge Inst-Urology ---
Discharge Inst-Urology Reconcile Patient Problems Problems Reviewed?: Yes Final Diagnosis CA PROSTATE Patient Instructions/Follow Up Plan/Assessment/Instructions Please make appointment to been seen in office in 2 weeks. In 48 hours, if no bleeding may resume Eliquis and ASA Increase oral fluids for 48 hours and then as needed. Diet and Activity as tolerated. If questions or concerns contact your physician Or seek help at emergency department. MACKENZIE LAGUNAS MD Nov 11, 2020 08:54
[2020-11-11] MEDS ORDERED: ONDANSETRON 4 MG/2 ML (SDV) Z0FRAN IVP PRN (09:15)
[2020-11-11] MEDS ORDERED: HYDROmorphone 2 MG/ML VIAL (DILAUDID) IV ONE (09:15)
--- NOTE | 2020-11-11 09:21 | Anesthesia-General Post-Op ---
General Patient Condition Mental Status/LOC: Same as Preop Cardiovascular: Satisfactory Nausea/Vomiting: Absent Respiratory: Satisfactory Pain: Controlled Complications: Absent Post Op Complications Complications None Follow Up Care/Instructions Patient Instructions None needed. Anesthesia/Patient Condition Patient Condition Patient is doing well, no complaints, stable vital signs, no apparent adverse anesthesia problems. No complications reported per nursing. D/C home per [facility] [place] Criteria: Yes LARRY JENKINS CRNA Nov 11, 2020 09:21
[2020-11-11] MEDS ORDERED: PHEN-640 PO (10:11)
== END 2020-11-11 10:55 | disposition home or self-care (01) ==
LOC: SDC 07:57
PROVIDERS: ATTEND Urology
DX: C61 Malignant neoplasm of prostate (principal); I10 Essential (primary) hypertension; I25.10 Atherosclerotic heart disease of native coronary artery without angina pectoris; I48.91 Unspecified atrial fibrillation; K21.9 Gastro-esophageal reflux disease without esophagitis; G47.33 Obstructive sleep apnea (adult) (pediatric); E11.51 Type 2 diabetes mellitus with diabetic peripheral angiopathy without gangrene; E66.8 Other obesity; Z68.29 Body mass index [BMI] 29.0-29.9, adult; Z79.899 Other long term (current) drug therapy; Z79.84 Long term (current) use of oral hypoglycemic drugs; Z79.01 Long term (current) use of anticoagulants; Z88.8 Allergy status to other drugs, medicaments and biological substances; Z91.048 Other nonmedicinal substance allergy status; Z95.5 Presence of coronary angioplasty implant and graft
CPT/HCPCS: 87081

== ENCOUNTER → 2020-11-18 | Outpatient (CLI) | payer MEDICARE ==
[~2020-11-18] MED LIST changes: +PHEN-640 PO
== END ==
LOC: CARD 12:00
PROVIDERS: ATTEND Nurse Practitioner Family
DX: I08.3 Combined rheumatic disorders of mitral, aortic and tricuspid valves (principal); I48.91 Unspecified atrial fibrillation; I65.29 Occlusion and stenosis of unspecified carotid artery; Z79.01 Long term (current) use of anticoagulants
CPT/HCPCS: 93306

== ENCOUNTER → 2021-01-26 | Outpatient (RCR) | payer MEDICARE | END | disposition home or self-care (01) | LOC: ONC 10-28 14:24 | PROVIDERS: ATTEND Radiology Radiation Oncology | DX: C61 Malignant neoplasm of prostate (principal); I25.10 Atherosclerotic heart disease of native coronary artery without angina pectoris; I10 Essential (primary) hypertension; E11.9 Type 2 diabetes mellitus without complications; Z95.5 Presence of coronary angioplasty implant and graft | CPT/HCPCS: 77300; 77301; 77334; 77336; 77338; 77385; 99204 ==

== ENCOUNTER 2021-04-02 13:27 | Outpatient (RCR) | payer MEDICARE | END 2021-04-27 | disposition home or self-care (01) | LOC: ONC 13:27 | PROVIDERS: ATTEND Radiology Radiation Oncology | DX: C61 Malignant neoplasm of prostate (principal); I11.9 Hypertensive heart disease without heart failure; I25.10 Atherosclerotic heart disease of native coronary artery without angina pectoris; E11.9 Type 2 diabetes mellitus without complications; E78.00 Pure hypercholesterolemia, unspecified; Z95.5 Presence of coronary angioplasty implant and graft | CPT/HCPCS: 77385 ×2; G0463; 77336 ==

== ENCOUNTER → 2021-09-22 | Outpatient (CLI) | payer MEDICARE ==
[~2021-09-22] MED LIST changes: -BISO10TA PO; +BISO10TA6 PO
--- NOTE | 2021-09-22 14:57 | Diagnostic Imaging Report ---
INDICATION: Prostate CA. Comparison with 09/29/2020. FINDINGS: 25 mCi of technetium-99m MDP was given. Three-hour delayed whole body imaging. Good uptake noted throughout the skeletal system. There is again noted mild increased uptake within the L4 and L5 vertebral bodies. There is increased uptake along the first MP joints bilaterally as well as within the left mid foot. No other areas of abnormal uptake have developed. IMPRESSION: 1. Abnormal activity in the lower lumbar spine appears stable. 2. Increased uptake within the feet also appears unchanged consistent with degenerative process. Dictated by: Dictated on workstation # [id number]
== END ==
LOC: CARD 11:01
PROVIDERS: ATTEND Urology
DX: C61 Malignant neoplasm of prostate (principal)
CPT/HCPCS: 78306; A9503

== ENCOUNTER → 2022-02-03 | Outpatient (CLI) | payer MEDICARE | LOC: CARD 15:54 | PROVIDERS: ATTEND Internal Medicine | DX: I48.91 Unspecified atrial fibrillation (principal) | CPT/HCPCS: 93005 ==

== ENCOUNTER → 2023-01-14 | Outpatient (CLI) | payer MEDICARE ==
[~2023-01-14] MED LIST changes: +CHLO10TA PO; -CHLO10TA10 PO; +LORA-1389 PO; -LORA-53 PO; -MELA1TAB20 PO; +MELA1TAB72 PO
== END ==
LOC: CARD 13:45
PROVIDERS: ATTEND Internal Medicine Cardiovascular Disease
DX: I08.3 Combined rheumatic disorders of mitral, aortic and tricuspid valves (principal)
CPT/HCPCS: 93306

== ENCOUNTER 2023-01-18 06:59 | Day surgery (SDC) | payer MEDICARE ==
[2023-01-18] VITALS (12 sets, daily range): BP systolic 105–123; BP diastolic 65–77
[~2023-01-18] VITALS: Ht 177.8 cm; Wt 96.1 kg
[2023-01-18] MEDS ORDERED: NS IV 1000 ML 1,000 ML IV SCH ×2 (07:00→09:45)
[2023-01-18] MEDS ORDERED: HEParin (CATH LAB) 2,000 ML IV ONE (07:03)
[2023-01-18] MEDS ORDERED: LIDOCAINE 1% INJ 20 ML VIAL ONE (07:03)
[2023-01-18] MEDS ORDERED: NS IV 1000 ML 1,000 ML ONE (07:03)
[2023-01-18 07:38] LABS: HEMATOCRIT 35 % (40-54); HEMOGLOBIN 11.9 g/dL (13.3-17.7); MEAN CORPUSCULAR HEMOGLOBIN 34 pg (25-34); MEAN CORPUSCULAR HGB CONC 34 g/dL (32-36); MEAN CORPUSCULAR VOLUME 98 fL (80-99); MEAN PLATELET VOLUME 11.7 fL (9.0-12.2); PLATELET COUNT 176 10^3/uL (130-400)
[2023-01-18 07:54] LABS: INR 1.1 (0.8-1.4); PROTHROMBIN TIME PATIENT 14.5 SEC (12.2-14.7)
[2023-01-18] MEDS ORDERED: NIAC-44 PO (07:57)
[2023-01-18] MEDS ORDERED: LORA-405 PO (07:57)
[2023-01-18] MEDS ORDERED: POTA99CA PO (07:57)
[2023-01-18] MEDS ORDERED: FURO40TA4 PO (07:57)
[2023-01-18] MEDS ORDERED: APIX5TAB PO (07:57)
[2023-01-18] MEDS ORDERED: MULT-1030 PO (07:57)
[2023-01-18] MEDS ORDERED: LATA7.5D OP (07:57)
[2023-01-18] MEDS ORDERED: FAMO20TA3 PO (07:57)
[2023-01-18] MEDS ORDERED: METF-478 PO (07:57)
[2023-01-18 08:00] LABS: ALBUMIN 4.5 GM/DL (3.2-4.5); BILIRUBIN,TOTAL 1.3 MG/DL (0.1-1.0); CALCIUM 9.4 MG/DL (8.5-10.1); CREATININE SERUM 1.73 MG/DL (0.60-1.30); POTASSIUM 3.9 MMOL/L (3.6-5.0); TOTAL PROTEIN 7.7 GM/DL (6.4-8.2)
[2023-01-18] MEDS ORDERED: fentaNYL INJ 100 MCG/2 ML AMP ONE (08:04)
[2023-01-18] MEDS ORDERED: MIDAZOLAM 5 MG/5 ML (VERSED) VIAL ONE (08:04)
--- NOTE | 2023-01-18 09:33 | Cardiac Cath Report ---
CARDIAC CATHETERIZATION DATE OF PROCEDURE: 01/18/23 INDICATION: CAD, recurrence of angina-like symptoms HISTORY: The patient is a 77 year old male with CAD and CABG who has recurrence of symptoms reminiscent of previous angina PROCEDURES PERFORMED: 1. Cor angio 2. BARBER and SVG angion 3. Left heart cath and pullback, no LV angio Amount of contrast used: 30 ml PROCEDURE DESCRIPTION: After informed consent and in the fasting state, left heart catheterization was performed through the R femoral artery utilizing a 5 Congolese system by percutaneous approach. Standard Sri catheters were utilized for the diagnostic portion of the procedure. JL4 for L cor angio. JR4 for R cor angio and SVG angio. TYE for BARBER angio. Pigtail for left heart cath and pull back. Mynx for hemostasis after angio of the R fem artery HEMODYNAMICS: LVEDP 17 mmHg. Pressure gradient on pull back across the aortic valve was 75 mmHg. Ascending aortic pressure 127/60/66 CORONARY ANGIOGRAPHY: Left main coronary artery: 70-80% ostial, heavy eccentric calcification Left anterior descending coronary artery: appears to have severe midvessel d isease with patent BARBER to distal LAD Left circumflex coronary artery: 80-90% in a subbranch of terminal OM where the vessel is of a relatively small caliber Right coronary artery: multiple 70% stenoses in ostial, proximal and distal portions. Competitive flow in the distal RCA from sequential SVG to posterolateral and distal RCA GRAFT ANGIOGRAPHY: BARBER to distal LAD patent and w/o significant disease Aortocoronary SVG to posterolateral RCA and distal RCA (competitive flow seen in the distal graft from the RCA) IMPRESSION: 1. Coronary artery disease as detailed above 2. Coronary and graft status does not appear to have changed significantly since the last card cath of 2018 3. LVEDP 17 mmHg 4. 75 mmHg gradient on pullback across the aortic valve, indicating significant aortic stenosis HAYDEN LIMON MD [facility] Jan 18, 2023 09:33
[2023-01-18] MEDS ORDERED: ASPI-999 PO (09:43)
[2023-01-18] MEDS ORDERED: PATIENT MAY USE OWN MEDS, ALL PO SCH (09:45)
[2023-01-18] MEDS ORDERED: ASPIRIN 81 MG CHEW (CHILDREN'S ASA) PO ONE (09:45)
--- NOTE | 2023-01-18 09:45 | Discharge Inst-Post CATH ---
Discharge Inst-CATH/EP Post Cardiac Cath/EP D/C Inst Follow Up/Plan F/u with Dr Calixto next week after doing BMP (blood test) ACTIVITY * Go Home directly and rest. * Limit activity of the leg (or wrist if it was used) for 7 days including aerobics, swimming, jogging, bicycling, etc. * Restrict stair-climbing for 7 days if possible, if not, climb up with your non-cath leg, then bring together on the same step. * Avoid lifting, pushing, pulling or excessive movement of the affected extremity for 7 days. * Customary sexual activity may be resumed after 2 days-use caution not to use a position that strains or causes pain to the affected extremity. * No driving for 24 hours. * NO SMOKING. * Avoid straining for bowel movements for 7 days. * Gentle walking on level ground is allowed. * Returning to work will depend on the type of procedure and the results. Your doctor will discuss this with you. CALL YOUR DOCTOR FOR ANY OF THE FOLLOWING: *If bleeding from the puncture site occurs- Apply gentle pressure to site with clean cloth and call your doctor or EMS. * If a knot or lump forms under the skin, increases in size, or causes pain. * If bruising appears to be worsening or moving further down your leg instead of disappearing. * Temperature above 101 F. CARE OF YOUR GROIN INCISION; * Bruising or purple discoloration of the skin near the puncture site is common. * You may shower only, no bathtub bathing for 5 days. Be careful to avoid slipping as your leg may feel stiff. * If a closure device was used on your femoral artery, please see the attached guide regarding care of the device and your leg. * Leave dressing on FOR 24 hours. CARE OF YOUR WRIST INCISION; * Bruising or purple discoloration of the skin near the puncture site is common. * You may shower. * DO NOT submerge wrist. * Leave dressing on FOR 24 hours. HAYDEN CALIXTO MD FACP [facility] Jan 18, 2023 09:45
--- NOTE | 2023-01-18 09:47 | Discharge Inst-Cardiology ---
Discharge Inst-Cardiac Discharge Medications New Medications: Aspirin (Aspirin) 81 Mg Tab.chew 81 MG PO DAILY, #90 TAB 3 Refills Continued Medications: Allopurinol (Allopurinol) 300 Mg Tablet 300 MG PO HS, TAB Apixaban (Eliquis) 5 Mg Tablet 5 MG PO BID, TAB Bisoprolol Fumarate (Bisoprolol Fumarate) 10 Mg Tablet 10 MG PO HS, TAB Famotidine (Acid Evp General Counsel (FAMOTIDINE)) 20 Mg Tablet 20 MG PO BID, TAB Finasteride (Finasteride) 5 Mg Tablet 5 MG PO HS, TAB Furosemide (Furosemide) 40 Mg Tablet 40 MG PO DAILY, TAB Furosemide (Furosemide) 40 Mg Tablet 40 MG PO 1200 PRN for FLUID RETENTION, TAB Latanoprost/Pf (Latanoprost 0.005% Eye Drop) 0.005 % Drops 1 DROP OP HS, DROPS Loratadine (Loratadine) 10 Mg Tablet 10 MG PO DAILY, TAB Lorazepam (Ativan) 1 Mg Tablet 1 MG PO HS, TAB Lovastatin (Lovastatin) 40 Mg Tablet 40 MG PO HS, TAB Multivits,Ca,Min/Iron/FA/Lycop (Centrum Men's Tablet) 8 Mg Iron-200 Mcg-600 Mcg Tablet 1 EACH PO DAILY, TAB Niacin (Niacin) 500 Mg Tablet 2000 MG PO HS, TAB TAKES 4 (500MG) TABLETS Potassium Chloride (Potassium Chloride) 8 Meq Capsule.er 16 MEQ PO DAILY, CAP TAKES 2 (8MEQ) TABLETS Potassium Citrate (Potassium) 99 Mg Capsule 198 MG PO HS, CAP TAKES 2 (99MG) CAPSULES Tizanidine HCl (Tizanidine HCl) 2 Mg Capsule 2 MG PO HS, CAP Ubidecarenone (Coq-10) 100 Mg Capsule 100 MG PO DAILY, CAP Discontinued Medications: Metformin HCl (Metformin HCl ER) 500 Mg Tab.er.24 1500 MG PO 1930, TAB TAKES 3 (500MG) TABLETS Patient Instructions Patient Instructions: Hold METFORMIIN until the morning of 01/21/23. then resume previous home dose HAYDEN LIMON MD [facility] Jan 18, 2023 09:47
--- NOTE | 2023-01-18 09:51 | Cardiac Procedure Note-CS/ASA ---
Pre-Procedure Note Pre-Op Procedure Note Date of Available H&P: Jan 12, 2023 Date H&P Reviewed: Jan 18, 2023 Time H&P Reviewed: 08:30 History & Physical: H&P Reviewed, No changes noted Moderate Sedation PreProcedure ASA Score 3 Airway Lungs Heart ASA score ASA 1: a normal healthy patient ASA 2: a patient with a mild systemic disease (mid diabetes, controlled hypertension, obesity ASA 3: a patient with a severe systemic disease that limits activity (angina, COPD, prior Myocardial infarction) ASA 4: a patient with an incapacitating disease that is a constant threat to life (CHF, renal failure) ASA 5: a moribund patient not expected to survive 24 hrs. (ruptured aneurysm) ASA 6: a declared brain- patient whose organs are being harvested. For emergent operations, add the letter E after the classification Mallampati Classification Grade 3 Sedation Plan Analgesia, Amnesia, Plan communicated to team members The patient is an appropriate candidate to undergo the planned procedure, sedation, and anesthesia. The patient immediately re-assessed prior to indication. HAYDEN LIMON MD FACP [facility] Jan 18, 2023 09:51
== END 2023-01-18 14:45 | disposition home or self-care (01) ==
LOC: CATH 06:59 → SDC 09:40 → CATH 14:45
PROVIDERS: ATTEND Internal Medicine Cardiovascular Disease
DX: I25.10 Atherosclerotic heart disease of native coronary artery without angina pectoris (principal); E66.9 Obesity, unspecified; I47.1 Supraventricular tachycardia; E11.42 Type 2 diabetes mellitus with diabetic polyneuropathy; I48.0 Paroxysmal atrial fibrillation; I10 Essential (primary) hypertension; E78.2 Mixed hyperlipidemia; I35.0 Nonrheumatic aortic (valve) stenosis; Z85.46 Personal history of malignant neoplasm of prostate; Z79.84 Long term (current) use of oral hypoglycemic drugs; Z95.1 Presence of aortocoronary bypass graft; Z79.01 Long term (current) use of anticoagulants; Z68.30 Body mass index [BMI] 30.0-30.9, adult; Z87.891 Personal history of nicotine dependence; Z79.899 Other long term (current) drug therapy
CPT/HCPCS: 80053; 80061; 85027; 85610; 85730; 87081; 93005; 93459; C1760; C1894; 36415

== ENCOUNTER → 2023-06-22 | Outpatient (CLI) | payer MEDICARE ==
[~2023-06-22] MED LIST changes: +ASPI-999 PO; +FAMO-356 PO; +LATA7.5D OP; +LORA-405 PO; +METF-478 PO; +MULT-1030 PO; +NIAC-44 PO; +POTA99CA PO
== END ==
LOC: CARD 13:10
PROVIDERS: ATTEND Internal Medicine Cardiovascular Disease
DX: I50.20 Unspecified systolic (congestive) heart failure (principal); I51.7 Cardiomegaly; I34.0 Nonrheumatic mitral (valve) insufficiency; Z95.2 Presence of prosthetic heart valve
CPT/HCPCS: 93306